=== PATIENT | female | born 1980 | race Caucasian/White ===

== ENCOUNTER 2017-02-26 10:01 | Emergency (ER) | payer MEDICAID ==
[~2017-02-26] VITALS: Ht 160 cm; Wt 70.0 kg
[2017-02-26] MEDS ORDERED: BUPIVACAINE HCL PF 0.5% 10 ML VIAL INFIL ONE (11:00)
[2017-02-26 11:36] VITALS: BP 132/84; PULSE 89; RESP 16; TEMP 98.2; O2SAT 98
[2017-02-26] MEDS ORDERED: IBUP800T23 PO (11:40)
[2017-02-26] MEDS ORDERED: TRAM50TA PO (11:40)
--- NOTE | 2017-02-26 11:41 | PD ---
HPI Chief Complaint: Injury Time Seen by Provider: 10:14 Travel History International Travel<30 days: No Contact w/Intl Traveler<30days: No Traveled to known affect area: No History of Present Illness HPI Patient is a 37-year-old female presenting to the emergency department evaluation of right fourth toe pain after kicking a table this morning prior to arrival. Patient states her pain is a 7 out of 10 and describes as aching and throbbing. She reports it is painful to move her toes or bear weight. She denies any numbness, tingling. Patient denies a significant past medical history. [facility] Past Medical History Medical History: Denies Significant Hx ?: Unknown Social History Alcohol Use: No Tobacco Use: No Substance Use: No Allergies-Medications (Allergen,Severity, Reaction): Coded Allergies: No Known Allergies (Unverified , 02/26/17) Review of Systems Except as stated in HPI: all other systems reviewed are Neg Musculoskeletal: Positive: Limited ROM, Pain Skin: Positive Change in Pigmentation Physical Exam Narrative GENERAL: Well-developed, well-nourished, alert female. Resting comfortably in no acute distress. SKIN: Warm and dry. HEAD: Normocephalic. EYES: No scleral icterus. No injection or drainage. NECK: Supple, trachea midline. No JVD or lymphadenopathy. CARDIOVASCULAR: Regular rate and rhythm without murmurs, gallops, or rubs. RESPIRATORY: Breath sounds equal bilaterally. No accessory muscle use. GASTROINTESTINAL: Abdomen soft, non-tender, nondistended. MUSCULOSKELETAL: No cyanosis, mild edema and ecchymosis noted to the left fourth toe proximally. 2+ dorsalis pedis pulse, brisk less than 3 second capillary refill. BACK: Nontender without obvious deformity. No CVA tenderness. Data Data Orders Orders Foot, Complete ([id number]) (02/26/17 ) Bupivacaine Pf 0.5% Inj (Marcaine Pf 0.5 (02/26/17 11:00) Shoe Post Op (02/26/17 ) Crutches (02/26/17 10:56) MDM Medical Decision Making Medical Screen Exam Complete: Yes Emergency Medical Condition: Yes Differential Diagnosis Contusion versus fracture versus dislocation versus other Narrative Course Patient's 37-year-old female presenting for evaluation of right toe pain after kicking a table. Patient is neurovascularly intact. There is an obvious deformity noted. Imaging ordered and pending. Patient given ice pack for comfort. X-ray shows a displaced fracture of the left fourth toe proximally. A digital block was performed to the left fourth toe with 0.5% bupivacaine. After toe was adequately anesthetized, it was reduced, toe was then boston taped to the third toe. Patient was placed in a postop shoe and given crutches. She was encouraged to leave boston tape intact for one week. She was encouraged to follow-up with her primary doctor. She was encouraged to rest, ice, elevate extremity to help with swelling and pain. She verbalized understanding of instructions. was present for education. Patient is stable for discharge. Diagnosis Primary Impression: Toe fracture, right Qualified Codes: S92.511A - Displaced fracture of proximal phalanx of right lesser toe(s), initial encounter for closed fracture Referrals: Specialist Field Engineer 1 week Primary Care Physician 1 week Patient Instructions: Crutch Instructions (ED), General Instructions, Toe Fracture (ED) Additional Instructions: Follow-up with your primary doctor or a certified substance abuse counselor in one week Rest, ice, elevate extremity Keep boston tape on toes until reevaluated by her doctor Take medications as directed Do not drive or operate machinery while taking narcotic pain medication Return to emergency department for any new or worsening symptoms Med/Other Pt SpecificInfo: Prescription(s) given Scripts Ibuprofen (Ibuprofen) 800 Mg Tab 800 MG PO Q6HR Y for PAIN, #40 TAB 0 Refills Prov: Dian Flowers 02/26/17 Tramadol (Tramadol) 50 Mg Tab 50 MG PO Q6H Y for PAIN, #6 TAB 0 Refills Prov: Dian Flowers 02/26/17 Disposition: 01 DISCHARGE HOME Condition: Stable Dian Flowers Feb 26, 2017 11:40
--- NOTE | 2017-02-26 12:08 | RADRPT ---
EXAM DATE/TIME: 02/26/2017 10:27 [facility] COMPARISON: No previous studies available for comparison. INDICATIONS : Kicked furnature, pain with deformity Rt 4th toe. MEDICAL HISTORY : None. SURGICAL HISTORY : None. ENCOUNTER: Initial ACUITY: 1 day PAIN SCORE: 10/10 LOCATION: Right 4th toe. FINDINGS: There is an oblique moderately angulated fracture involving the distal diaphysis of the fourth toe pr oximal phalanx with lateral angulation of the distal fragment aerated there is also slight plantar an gulation. The foot appears otherwise intact with normal mineralization. No articular abnormalities ar e identified. CONCLUSION: Moderately angulated fourth toe proximal phalangeal fracture. Rayshawn Bajwa MD on February 26, 2017 at 12:05 Board Certified Radiologist. This report was verified electronically.
== END 2017-02-26 11:53 | disposition home or self-care (01) ==
LOC: NEPK 10:01
DX: S92.511A Displaced fracture of proximal phalanx of right lesser toe(s), initial encounter for closed fracture (principal); W22.03XA Walked into furniture, initial encounter
CPT/HCPCS: 28515; 73630; 99283; E0113; L3260

== ENCOUNTER 2017-10-21 09:54 | Inpatient (IN) | payer MEDICAID ==
[2017-10-21] VITALS (7 sets, daily range): BP systolic 97–121; BP diastolic 55–76; PULSE 76–108; RESP 16–20; TEMP 98.5–99.9; O2SAT 92–98
[~2017-10-21] VITALS: Ht 162.6 cm; Wt 53.6 kg
[~2017-10-21 09:54] MED LIST: IBUP1TAB7 PO; TRAM50TA PO
--- NOTE | 2017-10-21 11:22 | PD ---
HPI Chief Complaint: Numbness/Tingling Time Seen by Provider: 11:05 Travel History International Travel<30 days: No Contact w/Intl Traveler<30days: No Traveled to known affect area: No History of Present Illness HPI 37-year-old female came to the emergency room with history of lower back pain radiating down her left leg. The pain is shooting and has been going on for past 1 week. Today she has been dragging her leg and cannot lift her foot. The history is mostly given by her since there is a language barrier. Patient speaks [place] only. No history of trauma. Patient did not fall. Vital signs are stable. She is otherwise a healthy person. This is the first time she is coming for medical help. Patient does not have history of chronic back pain as far as I know. Pain is worse upon movement and change in positions. The shooting pain is all the way down to her toes. PFSH Past Medical History Narrative Medical List of her past medical, surgical, social and family history reviewed from the nursing note Medical other: Yes (chronic back pain greater on left side) Tetanus Vaccination: < 5 Years Influenza Vaccination: No ?: Not LMP: 10/03/17 Tubal Ligation: Yes Past Surgical History Section: Yes (x2 ) Social History Alcohol Use: No Tobacco Use: No Substance Use: No Allergies-Medications (Allergen,Severity, Reaction): Coded Allergies: No Known Allergies (Unverified Adverse Reaction, Unknown, 10/21/17) Comments No known drug allergies. Reported Meds & Prescriptions Reported Meds & Active Scripts Active Narrative Medication List of her home medications reviewed from the nursing note. Review of Systems Except as stated in HPI: all other systems reviewed are Neg Musculoskeletal: Positive: Pain Physical Exam Narrative GENERAL: Awake, alert, moderate to SKIN: Focused skin assessment warm/dry. HEAD: Atraumatic. Normocephalic. EYES: Pupils equal and round. No scleral icterus. No injection or drainage. ENT: No nasal bleeding or discharge. Mucous membranes pink and moist. NECK: Trachea midline. No JVD. CARDIOVASCULAR: Regular rate and rhythm. No murmur appreciated. RESPIRATORY: No accessory muscle use. Clear to auscultation. Breath sounds equal bilaterally. GASTROINTESTINAL: Abdomen soft, non-tender, nondistended. Hepatic and splenic margins not palpable. MUSCULOSKELETAL: No obvious deformities. No clubbing. No cyanosis. No edema. Positive SLR NEUROLOGICAL: Awake and alert. No obvious cranial nerve deficits. Motor grossly within normal limits. Normal speech. Absent ankle reflex on the left side. Positive knee jerk bilaterally and equal PSYCHIATRIC: Appropriate mood and affect; insight and judgment normal. Data Data Last Documented VS Vital Signs Date Time Temp Pulse Resp B/P (MAP) Pulse Ox O2 Delivery O2 Flow Rate FiO2 10/21/17 12:30 78 16 98 Room Air 10/21/17 12:30 103/76 (85) 10/21/17 09:57 99.9 Orders Orders Mri L Spine W/O Contrast (10/21/17 ) Urinalysis - C+S If Indicated (10/21/17 11:34) Ed Urine Pregnancytest Poc (10/21/17 11:34) Morphine Inj (Morphine Inj) (10/21/17 11:45) Ketorolac Inj (Toradol Inj) (10/21/17 11:45) Orphenadrine Inj (Norflex Inj) (10/21/17 11:45) Ondansetron Odt (Zofran Odt) (10/21/17 11:45) Urine Culture (10/21/17 11:58) Nitrofurantoin Monohyd Macrocr (Macrobid (10/21/17 12:30) Dexamethasone Inj (Decadron Inj) (10/21/17 13:00) Admit Order (Ed Use Only) (10/21/17 13:10) Labs Laboratory Tests Test 10/21/17 11:58 Urine Collection Type CLEAN CATCH Urine Color YELLOW Urine Turbidity SL CLOUDY Urine pH 7.0 Urine Specific [place] 1.010 Urine Protein NEG mg/dL Urine Glucose (UA) NEG mg/dL Urine Ketones NEG mg/dL Urine Occult Blood TRACE Urine Nitrite POS Urine Bilirubin NEG Urine Urobilinogen 0.2 MG/DL Urine Leukocyte Esterase NEG Urine RBC 0-3 /hpf Urine WBC 3-5 /hpf Urine Squamous Epithelial Cells 0-5 /hpf Urine Bacteria MANY /hpf Microscopic Urinalysis Comment CULTURE INDICATED Urine Collection Time 11:58 [facility] Medical Decision Making Medical Screen Exam Complete: Yes Emergency Medical Condition: Yes Medical Record Reviewed: Yes Interpretation(s) Twelve-lead EKG was reviewed by me. Normal sinus rhythm, normal axis, sinus arrhythmia, nonspecific ST-T wave changes. Heart rate of 61 bpm Differential Diagnosis Lumbar radiculopathy, sciatica, foot drop Narrative Course 12:15 PM patient has been given pain medication and muscle relaxation. Awaiting for the MRI of the lumbar spine to be done and resulted. I am concerned about the foot drop and she might require surgical decompression. The UA is positive for UTI. I will go ahead and treat her as well. 12:52 PM MRI is suggestive of a large disc protrusion at L4-L5 level which is causing significant compression on the left nerve root. I will order some Decadron IV for the patient. I put a call out from our the neurosurgeon to discuss this case with him. The patient should preferably be admitted once again due to the foot drop. 1:02 PM case was discussed with Dr. Shannon and he wants the patient to be transferred to the main hospital. Awaiting for the hospitalist callback. Procedures EKG Prior to Arrival: No Physician Communication Physician Communication Dr. Shannon Diagnosis Primary Impression: Lumbar radiculopathy, acute Additional Impression: Foot drop, left Admitting Information Admitting Physician Requests: Admit Scripts Walker with Front Wheels (Walker with Front Wheels) 1 Mis Mis EA .XX DIRECTED, #1 0 Refills Prov: Jamal Sims 10/23/17 Fluconazole (Diflucan) 150 Mg Tab 150 MG PO ONCE Y for yeast infection, #1 TAB 0 Refills Prov: Jonathon Corona MD 10/23/17 Nitrofurantoin Monohydrate Macrocrystals (Nitrofurantoin Monohydrate Macrocrystals) 100 Mg Cap 100 MG PO BID for Infection for 5 Days, #10 CAP 0 Refills Prov: Jonathon Corona MD 10/23/17 Hydrocodone/Acetaminophen (Hydrocodone-Acetamin 10-325 mg) 10 Mg-325 Mg Tablet 1 TAB PO Q6HR Y for PAIN SCALE 1 TO 5 for 7 Days, #21 TAB Prov: Jonathon Corona MD 10/23/17 Jossue Zapien MD October 21, 2017 11:22
[2017-10-21] MEDS ORDERED: KETOROLAC TROMETHAMINE 60 MG/2 ML (IM) VIAL IM ONE (11:45)
[2017-10-21] MEDS ORDERED: MORPHINE SULFATE 8 MG/ML INJ IM ONE (11:45)
[2017-10-21] MEDS ORDERED: ONDANSETRON ODT 4 MG TAB PO ONE (11:45)
[2017-10-21] MEDS ORDERED: ORPHENADRINE INJ 60 MG/2 ML AMP IM ONE (11:45)
[2017-10-21 12:06] LABS: BILIRUBIN, URINE NEG (NEG); BLOOD, URINE TRACE (NEG); GLUCOSE,URINE NEG (NEG); KETONE, URINE NEG (NEG); NITRITE,URINE POS (NEG); URINE COLOR YELLOW (YELLW/STRAW); URINE LEUKOCYTE ESTERASE NEG (NEG)
[2017-10-21 12:12] LABS: BACTERIA, URINE MANY /hpf; RBC, URINE 0-3 /hpf (0-3); SQUAMOUS EPITHELIAL CELL URINE 0-5 /hpf (0-5)
[2017-10-21] MEDS ORDERED: NITROFURANTOIN MONOHYD MACROCR 100 MG CAP PO ONE (12:30)
--- NOTE | 2017-10-21 12:50 | RADRPT ---
EXAM DATE/TIME: 10/21/2017 12:39 [facility] COMPARISON: No previous studies available for comparison. INDICATIONS : Radiculopathy. Lower back pain radiating down left leg with numbness, tingling and left foot droop . MEDICAL HISTORY : Chronic back pain. SURGICAL HISTORY : Tubal ligation. section. ENCOUNTER: Initial ACUITY: 1 day PAIN SCORE: 8/10 LOCATION: Lower back. TECHNIQUE: Multiplanar multisequence MRI of the lumbar spine was performed without contrast. FINDINGS: The most caudal appearing lumbar vertebra is numbered as L5. VERTEBRAE: Homogeneous signal. Normal alignment. DISCS: There is desiccation and disc space narrowing at L4-5 and L5-S1 levels. There is a large anterior epi dural defect on the sagittal images at the L4-5 level. CONUS: Normal level and configuration. T12-L1: The thecal sac has a normal diameter. No evidence of disc bulge or protrusion. The neural foramina are patent bilaterally. L1-L2: The thecal sac has a normal diameter. No evidence of disc bulge or protrusion. The neural foramina are patent bilaterally. L2-L3: The thecal sac has a normal diameter. No evidence of disc bulge or protrusion. The neural foramina are patent bilaterally. L3-L4: The thecal sac has a normal diameter. No evidence of disc bulge or protrusion. The neural foramina are patent bilaterally. L4-L5: There is a large posterior central and left parasagittal protrusion measuring up to approximately 1.6 cm across the base and up to 9 mm in greatest AP diameter with mass effect on the thecal sac and belkis tral canal stenosis. The neural foramina are patent. There is mass effect on the origin of the left L 5 nerve root. L5-S1: No evidence of disc bulge or protrusion. The neural foramina are patent. CONCLUSION: Large posterior central and left paracentral protrusion at the L4-5 level with mass effect on the the rg sac and origin of the left L5 nerve root. Alexey Stubbs MD on October 21, 2017 at 12:44 Board Certified Radiologist. This report was verified electronically.
[2017-10-21] MEDS ORDERED: DEXAMETHASONE SOD PHOS 20 MG/5 ML VIAL IV PUSH ONE (13:00)
--- NOTE | 2017-10-21 13:24 | PD.CONS ---
HPI Consult Requested By Primary Care Physician No Primary Care Physician History of Present Illness This is a pleasant 37-year-old female came to the emergency room with history of lower back pain radiating down her left leg. Her pain is shooting and has been worsening. She has been dragging her leg and cannot lift her foot. She has been numb and unable to move her left foot for over 10 days. she reports a complete foot drop for over 10 days. She speaks [place] only. No history of trauma. Patient did not fall. Vital signs are stable. She is otherwise healthy. She denies incontinence of stool or urinary retention. This the first time she is coming for medical help. Her pain is worse upon movement and change in positions. The shooting pain is all the way down to her toes. MRI of the lumbar spine showed a large disk extrusion at L4-5, Neurosurgical consultation was requested Review of Systems Constitutional: DENIES: Diaphoretic episodes, Fatigue, Fever, Weight gain, Weight loss, Chills, Dizziness, Change in appetite, Night Sweats Endocrine: DENIES: Abnorml menstrual pattern, Heat/cold intolerance, Polydipsia , Polyuria, Polyphagia Eyes: DENIES: Blurred vision, Diplopia, Eye inflammation, Eye pain, Vision loss , Photosensitivity, Double Vision Ears, nose, mouth, throat: DENIES: Tinnitus, Hearing loss, Vertigo, Nasal discharge, Oral lesions, Throat pain, Hoarseness, Ear Pain, Running Nose, Epistaxis, Sinus Pain, Toothache, Odynophagia Respiratory: DENIES: Apneas, Cough, Snoring, Wheezing, Hemoptysis, Sputum production, Shortness of breath Cardiovascular: DENIES: Chest pain, Palpitations, Syncope, Dyspnea on Exertion , PND, Lower Extremity Edema, Orthopnea, Claudication Genitourinary: DENIES: Abnormal vaginal bleeding, Dysmenorrhea, Dyspareunia, Sexual dysfunction, Urinary frequency, Urinary incontinence, Urgency, Hematuria , Dysuria, Nocturia, Vaginal discharge Musculoskeletal: COMPLAINS OF: Joint pain, Muscle aches, Back pain, DENIES: Stiffness, Joint Swelling, Neck pain Integumentary: DENIES: Abnormal pigmentation, Pruritus, Rash, Nail changes, Breast masses, Breast skin changes, Nipple discharge Hematologic/lymphatic: DENIES: Bruising, Lymphadenopathy Immunologic/allergic: DENIES: Eczema, Urticaria Neurologic: COMPLAINS OF: Abnormal gait, Localized weakness, Paresthesias, DENIES: Headache, Seizures, Speech Problems, Tremor, Poor Balance Psychiatric: DENIES: Anxiety, Confusion, Mood changes, Depression, Hallucinations, Agitation, Suicidal Ideation, Homicidal Ideation, Delusions Past Family Social History Allergies: Coded Allergies: No Known Allergies (Unverified Adverse Reaction, Unknown, 10/21/17) Past Surgical History Tubal Ligation: Yes Section: Yes (x2 ) Reported Medications No Active Prescriptions or Reported Medications Active Ordered Medications Current Medications Morphine Sulfate (Morphine Inj) 6 mg ONCE ONCE IM Last administered on 12:15; Start 10/21/17 at 11:45; Stop 10/21/17 at 11:46; Status DC Ketorolac Tromethamine (Toradol Inj) 30 mg ONCE ONCE IM Last administered on at 12:14; Start 10/21/17 at 11:45; Stop 10/21/17 at 11:46; Status DC Orphenadrine Citrate (Norflex Inj) 60 mg ONCE ONCE IM Last administered on 10/21 12:13; Start 10/21/17 at 11:45; Stop 10/21/17 at 11:46; Status DC Ondansetron HCl (Zofran Odt) 4 mg ONCE ONCE PO Last administered on 10/21/17at 12:14; Start 10/21/17 at 11:45; Stop 10/21/17 at 11:46; Status DC Nitrofurantoin Macrocrystals (Macrobid) 100 mg ONCE ONCE PO Last administered on 10/21/17 13:21; Start 10/21/17 at 12:30; Stop 10/21/17 at 12:31; Status DC Dexamethasone Sodium Phosphate (Decadron Inj) 10 mg ONCE ONCE IV PUSH Last administered on 10/21/17 13:22; Start 10/21/17 at 13:00; Stop 10/21/17 at 13:01; Status DC Sodium Chloride (NS Flush) 2 ml UNSCH PRN IV FLUSH FLUSH AFTER USING IV ACCESS Last administered on 5/3/18at 14:40; Start 10/21/17 at 14:00 Sodium Chloride (NS Flush) 2 ml BID IV FLUSH Last administered on 10/22/17at 08: 22; Start 10/21/17 at 21:00 Acetaminophen (Tylenol) 650 mg Q4H PRN PO TEMP > 100.4; Start 10/21/17 at 14:00 Ondansetron HCl (Zofran Inj) 4 mg Q6H PRN IVP NAUSEA OR VOMITING; Start at 14:00 Naloxone HCl (Narcan Inj) 0.4 mg UNSCH PRN IV PUSH SEE LABEL COMMENTS; Start at 14:00 Senna/Docusate Sodium (Desirae-Colace) 1 tab BID PO ; Start 10/21/17 at 21:00 Magnesium Hydroxide (Milk Of Magnesia Liq) 30 ml Q12H PRN PO Mild constipation ; Start 10/21/17 at 14:00 Sennosides (Senokot) 17.2 mg Q12H PRN PO Moderate constipation; Start 10/21/17 at 14:00 Bisacodyl (Dulcolax Supp) 10 mg DAILY PRN RECTAL SEVERE CONSITIPATION; Start at 14:00 Morphine Sulfate (Morphine Inj) 2 mg Q4H PRN IV PUSH pain 1-10; Start 10/21/17 at 14:15 Ceftriaxone Sodium 1000 mg/ Sodium Chloride 100 ml @ 200 mls/hr Q24H IV Last administered on 10/21/17at 14:39; Start 10/21/17 at 15:00 Cefazolin Sodium/ Dextrose 50 ml @ 150 mls/hr ONCE ONCE IV Last administered on 10/22/17at 05:25; Start 10/22/17 at 06:00; Stop 10/22/17 at 06:19; Status DC Chlorhexidine Gluconate (Hibiclens 4% Top Soln) 1 applic HS TOP Last administered on 10/21/17at 21:00; Start 10/21/17 at 21:00; Stop 10/23/17 at 21:01 Thrombin (Thrombin Top Soln) 10,000 units STK-MED ONCE .ROUTE ; Start 10/22/17 at 06:59; Stop 10/22/17 at 07:00; Status DC Gelatin (Gelfoam 100 Top) 1 foam STK-MED ONCE .ROUTE ; Start 10/22/17 at 06:59; Stop 10/22/17 at 07:00; Status DC Gentamicin Sulfate (Gentamicin Inj) 240 mg STK-MED ONCE .ROUTE ; Start 10/22/17 at 06:59; Stop 10/22/17 at 07:00; Status DC Bupivacaine HCl (Marcaine Pf 0.5% Inj) 30 ml STK-MED ONCE .ROUTE ; Start at 07:03; Stop 10/22/17 at 07:04; Status DC Methylprednisolone Acetate (Depo-Medrol Inj) 40 mg STK-MED ONCE .ROUTE ; Start 10/22/17 at 07:03; Stop 10/22/17 at 07:04; Status DC Artificial Tears (Lacrilube Opht Oint) 3.5 applic STK-MED ONCE .ROUTE ; Start at 07:06; Stop 10/22/17 at 07:07; Status DC Acetaminophen 100 ml @ As Directed STK-MED ONCE IV ; Start 10/22/17 at 07:06; Stop 10/22/17 at 07:07; Status DC Family History Her family history was reviewed and noncontributory to her dish herniation Social History Alcohol Use: No Tobacco Use: No Substance Use: No Physical Exam Vital Signs Vital Signs Date Time Temp Pulse Resp B/P (MAP) Pulse Ox O2 Delivery O2 Flow Rate FiO2 10/21/17 10:21 103 16 99 Room Air 10/21/17 09:57 99.9 108 16 114/64 (81) 98 Physical Exam The patient is alert, awake and oriented to time, place and person. Speech is fluent. Cranial nerve examination: pupils to be equal, round and reactive to light. Extra-ocular movements are intact. Facial motor and sensory function are normal and symmetrical. Gross hearing appears intact. Sternocleidomastoid and trapezius muscles are symmetrical. Other cranial nerves are intact. Neck is soft and supple with a good range of motion without pain. Muscle strength is normal in all muscle groups of both upper. In her left lower extremity there is give away due to pain in her ilipsoas, abductors and quadriceps, strenght in tibialis anterior and EHL 0/5. 5/5 all groups of right lower extremity Sensory examination is intact to light touch and pin prick in both upper extremities and absent in left L5 dermatome. Intact in her right lower extremity Deep tendon reflexes are symmetrical in both upper and lower extremities. There is a bilateral plantar flexion response. Cerebellar examination is unremarkable, without deficits. Lungs clear Heart regular rthythm and rate Skin. warm and dry Laboratory Laboratory Tests Test 10/21/17 11:58 Urine Collection Type CLEAN CATCH Urine Color YELLOW Urine Turbidity SL CLOUDY Urine pH 7.0 Urine Specific [place] 1.010 Urine Protein NEG Urine Glucose (UA) NEG Urine Ketones NEG Urine Occult Blood TRACE Urine Nitrite POS Urine Bilirubin NEG Urine Urobilinogen 0.2 Urine Leukocyte Esterase NEG Urine RBC 0-3 Urine WBC 3-5 Urine Squamous Epithelial Cells 0-5 Urine Bacteria MANY Microscopic Urinalysis Comment CULTURE INDICATED Urine Collection Time 11:58 Date/Time Source Procedure Growth Status 10/21/17 11:58 Urine Clean Catch Urine Culture Pending Received Attending Statement Last 48 hours Impressions Lumbar Spine MRI 10/21/17 0000 Signed Impressions: Service Date/Time: October 12:39 - CONCLUSION: Large posterior central and left paracentral protrusion at the L4-5 level with mass effect on the thecal sac and origin of the left L5 nerve root. Alexey Stubbs MD Continue neuro checks in a serial fashion. I recommend a surgical decompression with L4-5 microdiscectomy. We have discussed the details including the [id number] details of the surgical procedure, its indications, alternatives, risks, and potential complications. Risks and potential complications include, but are not limited to, infection, blood loss, CSF leak, partial or complete loss of sight in one or both eyes, paresis, paralysis, permanent pain or difficulty swallowing, loss of bowel or bladder function, complications from anesthesia, blood clot, stroke, myocardial infarction, or even . Rustam Shannon MD October 21, 2017 13:24
[2017-10-21] MEDS ORDERED: SENNOSIDES 8.6 MG TAB PO PRN (14:00)
[2017-10-21] MEDS ORDERED: MAGNESIUM HYDROXIDE SUSP 30 ML CUP PO PRN (14:00)
[2017-10-21] MEDS ORDERED: BISACODYL 10 MG SUPP RECTAL PRN (14:00)
[2017-10-21] MEDS ORDERED: SODIUM CHLORIDE 0.9% FLUSH 10 ML FLUSH IV FLUSH PRN (14:00)
[2017-10-21] MEDS ORDERED: ONDANSETRON HCL 4 MG/2 ML VIAL IVP PRN (14:00)
[2017-10-21] MEDS ORDERED: ACETAMINOPHEN 325 MG TAB PO PRN (14:00)
[2017-10-21] MEDS ORDERED: NALOXONE HCL 0.4 MG/ML AMP IV PUSH PRN (14:00)
[2017-10-21] MEDS ORDERED: MORPHINE SULFATE 4 MG/ML INJ IV PUSH PRN (14:15)
[2017-10-21] MEDS: SODIUM CHLORIDE 0.9% FLUSH 10 ML FLUSH IV FLUSH SCH (14:39)
[2017-10-21] MEDS ORDERED: cefTRIAXone INJ 1,000 MG in SODIUM CHLORIDE 0.9% INJ 100 ML IV SCH (15:00)
--- NOTE | 2017-10-21 17:49 | RADRPT ---
EXAM DATE/TIME: 10/21/2017 17:42 [facility] COMPARISON: MRI LUMBAR SPINE W/O CONTRAST, October 21, 2017, 12:39. INDICATIONS : Evaluate for pneumonia, pneuothorax or communicable disease. Pre op for lumbar surgery. MEDICAL HISTORY : None. SURGICAL HISTORY : None. ENCOUNTER: Initial ACUITY: 1 day PAIN SCORE: 0/10 LOCATION: Bilateral chest FINDINGS: PA and lateral views of the chest demonstrate the lungs to be symmetrically aerated without evidence of mass, infiltrate or effusion. The cardiomediastinal contours are unremarkable. Osseous structure s are intact. CONCLUSION: 1. No acute cardiopulmonary disease. Emanuel Lawson MD on October 21, 2017 at 17:47 Board Certified Radiologist. This report was verified electronically.
[2017-10-21] MEDS: CHLORHEXIDINE GLUCONATE 4% SOLN 120 ML BTL TOP SCH (21:00)
[2017-10-21] MEDS: DOCUSATE SODIUM 50 MG/SENNA 8.6 MG TAB PO SCH (21:00)
[2017-10-21 22:11] LABS: AUTOMATED NEUTROPHIL # 7.1 TH/MM3 (1.8-7.7); BASOPHIL % 0.1 % (0.0-2.0); HEMATOCRIT 41.2 % (35.0-46.0); HEMOGLOBIN 13.6 GM/DL (11.6-15.3); LYMPHOCYTE # 0.5 TH/MM3 (1.0-4.8); MEAN CELL VOLUME 81.2 FL (80.0-100.0); MEAN CORPUSCULAR HEMOGLOBIN 26.8 PG (27.0-34.0); MEAN CORPUSCULAR HGB CONC 33.1 % (32.0-36.0); MEAN PLATELET VOLUME 10.3 FL (7.0-11.0); MONO % 0.8 % (0.0-8.0); MONOCYTE # 0.1 TH/MM3 (0-0.9); NEUT % 93.1 % (16.0-70.0); PLATELET COUNT 197 TH/MM3 (150-450); RED BLOOD COUNT 5.07 MIL/MM3 (4.00-5.30); RED CELL DISTRIBUTION WIDTH 13.2 % (11.6-17.2); WHITE BLOOD COUNT 7.7 TH/MM3 (4.0-11.0)
[2017-10-21 22:18] LABS: PROTHROMBIN TIME - PATIENT 10.3 SEC (9.8-11.6)
[2017-10-21 22:29] LABS: ALBUMIN 4.2 GM/DL (3.4-5.0); ALT (GPT) 18 U/L (10-53); AST (GOT) 12 U/L (15-37); BICARBONATE 23.6 MEQ/L (21.0-32.0); BLOOD UREA NITROGEN 14 MG/DL (7-18); CALCIUM 9.2 MG/DL (8.5-10.1); CHLORIDE 105 MEQ/L (98-107); CREATININE 0.84 MG/DL (0.50-1.00); GLOMERULAR FILTRATION RATE 77 ML/MIN (>89); GLUCOSE,RANDOM 110 MG/DL (74-106); SODIUM (NA) 139 MEQ/L (136-145)
[2017-10-21 22:30] LABS: ALKALINE PHOSPHATASE 66 U/L (45-117); TOTAL BILIRUBIN ADULT 0.4 MG/DL (0.2-1.0); TOTAL PROTEIN 8.5 GM/DL (6.4-8.2)
[2017-10-22] VITALS: BP 99/55; PULSE 80; RESP 16; TEMP 97.6; O2SAT 96
[2017-10-22 03:54] VITALS: BP 105/59; PULSE 72; RESP 17; TEMP 97.7; O2SAT 95
[2017-10-22] MEDS ORDERED: ceFAZolin 2 GM PREMIX 50 ML IV ONE ×2 (06:00→10:26)
[2017-10-22] MEDS ORDERED: THROMBIN (TOPICAL) 5,000 UNIT VIAL ONE (06:59)
[2017-10-22] MEDS ORDERED: GENTAMICIN SULFATE 80 MG/2 ML VIAL ONE (06:59)
[2017-10-22] MEDS ORDERED: GELFOAM SIZE 100 ONE (06:59)
[2017-10-22] MEDS ORDERED: methylPREDNISolone ACETATE 40 MG/ML VIAL ONE (07:03)
[2017-10-22] MEDS ORDERED: BUPIVACAINE HCL PF 0.5% 30 ML VIAL ONE (07:03)
[2017-10-22] MEDS ORDERED: ARTIFICIAL TEARS OPTH OINT 3.5 APPLIC/3.5 GM TUBO ONE (07:06)
[2017-10-22] MEDS ORDERED: ACETAMINOPHEN 1000 MG/100 ML 100 ML IV ONE (07:06)
[2017-10-22 07:56] LABS: BASOPHIL % 0.1 % (0.0-2.0); HEMATOCRIT 40.9 % (35.0-46.0); HEMOGLOBIN 13.5 GM/DL (11.6-15.3); LYMPH % 11.2 % (9.0-44.0); LYMPHOCYTE # 1.4 TH/MM3 (1.0-4.8); MEAN CELL VOLUME 81.4 FL (80.0-100.0); MEAN CORPUSCULAR HEMOGLOBIN 26.9 PG (27.0-34.0); MEAN CORPUSCULAR HGB CONC 33.1 % (32.0-36.0); MEAN PLATELET VOLUME 10.2 FL (7.0-11.0); MONO % 5.6 % (0.0-8.0); MONOCYTE # 0.7 TH/MM3 (0-0.9); NEUT % 83.1 % (16.0-70.0); PLATELET COUNT 220 TH/MM3 (150-450); RED BLOOD COUNT 5.02 MIL/MM3 (4.00-5.30); RED CELL DISTRIBUTION WIDTH 13.8 % (11.6-17.2); WHITE BLOOD COUNT 12.1 TH/MM3 (4.0-11.0)
[2017-10-22] MEDS: DOCUSATE SODIUM 50 MG/SENNA 8.6 MG TAB PO SCH (08:22)
[2017-10-22] MEDS: SODIUM CHLORIDE 0.9% FLUSH 10 ML FLUSH IV FLUSH SCH ×2 (08:22→21:00)
[2017-10-22 08:31] LABS: BICARBONATE 24.3 MEQ/L (21.0-32.0); CALCIUM 9.1 MG/DL (8.5-10.1); CREATININE 0.93 MG/DL (0.50-1.00)
[2017-10-22] MEDS ORDERED: ACETAMINOPHEN 325 MG TAB PO PRN (09:45)
[2017-10-22] MEDS ORDERED: MORPHINE SULFATE 4 MG/ML INJ IV PUSH PRN ×2 (09:45)
[2017-10-22] MEDS ORDERED: ACETAMINOPHEN/HYDROcodone 325 MG/10 MG TAB PO PRN (09:45)
--- NOTE | 2017-10-22 11:08 | PD.OP ---
Operative Report Date of Surgery: October 22, 2017 Preoperative Diagnosis: L4-5 disk herniatiohn Postoperative Diagnosis: L4-5 disk herniatiohn Procedure: Left L4-5 hemilaminectomy and microdiscectomy Anesthesia: general Surgeon: Rustam Shannon Roll Weigher(s): Nancy Lomeli Operation and Findings: INDICATIONS FOR THE SURGICAL PROCEDURE Ms Wilburn is a 37 year-old female who presented with intractable mechanical back pain and clinical evidence of lower extremity radiculopathy and a foot drop for more than 10 days. She was found to have a very large disk herniation causing significant stenosis with significant mass effect on the exiting L5 nerve root neural structures which correlated with the clinical symptoms. The patient has failed maximum nonsurgical management including multiple modalities of conservative treatment as well as pain management interventions by an interventional pain specialist. A surgical decompression were indicated as a last resort. The [id number] details of the procedure, indications, alternatives, risks and potential complications were fully discussed with the patient. The patient fully understood. All the questions were answered. No guarantees were given. The patient voiced requesting the procedure and signed informed consents. The patient was offered the alternative of delaying the procedure and continuing with nonsurgical management. DETAILS OF THE SURGICAL PROCEDURE After the induction of general anesthesia, endotracheal intubation was performed. A Loya catheter, bilateral NKECHI hose and sequential compression devices were placed and kept throughout the procedure. The patient was positioned prone on a Horacio table over a Judah frame. All pressure points were carefully padded with eggcrate mattress. The eyes were tapped shut after ointment was applied by the anesthesiologist to prevent corneal abrasion. A Edna hugger was placed over the exposed lower body to maintain control of the core body temperature. The lower lumbar region was prepped and draped in the usual sterile fashion. A spinal needle was placed for localization and an x- ray performed with a C-arm. A skin incision was made in the midline over the spinous processes L4-5 with a # 10 blade. Small subcutaneous bleeders were controlled with a bipolar and the dissection was carried out through the lumbar fascia exposing the spinous processes. A subperiosteal dissection was performed with a Reed elevator and a Bovie over the left L4-5 spinous process lamina and facets. A microdiscectomy self-retaining retractor was placed on the incision and an x-ray was obtained with an instrument placed underneath the lamina. At this point in the procedure the operating microscope was draped in the usual sterile fashion and brought to the field. The rest of the surgical procedure was performed using microsurgical dissection technique with exception of the closure. Once the level was confirmed, a decompressive laminectomy was performed at L4-5 on the left side using the TPS drill with an 4mm drill bit. A medial facetectomy was performed and the superior free border of the ligamentum flavum was dissected with a ligament dissector and removed with a thin footplate 2 mm Kerrison The medial facetectomy allowed me to expose the left L5 nerve root, which was identified and followed towards its exit in the foramen. Epidural veins located laterally to the dural sac were coagulated with a bipolar and incised with microscissors. Gentle medial retraction of the dural sac allowed inspection of the disc space. The patient had a very large disk extrusion/ herniation, causing severe mass effect over the exiting nerve root. The annulus fibrosus of the disc was coagulated with the bipolar and incised with an 11 blade. The extruded disc was carefully dissected from the surrounding tissue and removed with pituitary forceps. Then, a microdiscectomy was carried out in the standard fashion using straight and up-biting pituitary forceps. An excellent decompression of the dural sac and nerve root was achieved. The exit of the nerve root was inspected for residual disc fragments and hemostasis was secured with the bipolar. The incision was irrigated with a large amount of saline solution. A Valsalva maneuver failed to show any cerebrospinal fluid leak or bleeding. The decompression was assessed again and found to be satisfactory. The incision was then closed in layers. The fascia was closed with 0 Vicryl sutures in an interrupted fashion. The superficial fascia was closed with 0 Vicryl sutures. The fascia was infiltrated with 0.5% Marcaine with epinephrine 1:100,000 dilution. The subcutaneous tissue was irrigated then closed with 0 Vicryl and 3 -0 Vicryl. The skin was closed with 4-0 running subcuticular Vicryl. Dermabond was applied to the skin. A sterile dressing was applied. At the end of the procedure, the sponge, needle and instrument counts were all correct. Estimated blood loss was less than 50 cc. No blood transfusion was given. No intraoperative complications occurred. The patient received prophylactic antibiotics. The patient was then extubated and transferred to the recovery room in stable condition. Rustam Shannon MD October 22, 2017 11:08
[2017-10-22] MEDS ORDERED: DO NOT ADM ANY ANTICOAGULANT DRUGS PRN (11:18)
[2017-10-22] MEDS ORDERED: MIDAZOLAM HCL 2 MG/2 ML VIAL ONE (11:24)
[2017-10-22] MEDS ORDERED: MORPHINE SULFATE 4 MG/ML INJ ONE (11:25)
[2017-10-22] MEDS: NS + KCL 20 MEQ INJ 1,000 ML IV SCH ×2 (11:30→23:16)
--- NOTE | 2017-10-22 11:55 | RADRPT ---
EXAM DATE/TIME: 10/22/2017 10:04 [place] COMPARISON: No previous studies available for comparison. INDICATIONS : Level Localization L4,L5. MEDICAL HISTORY : Chronic back pain. SURGICAL HISTORY : Tubal ligation. section. ENCOUNTER: Initial ACUITY: 1 day PAIN SCORE: Non-responsive. LOCATION: Lumbar spine. FINDINGS: Metallic probe directed at L4-L5 CONCLUSION: Metallic probe L4-L5 Earl Palacios MD FACR on October 22, 2017 at 11:52 Board Certified Radiologist. This report was verified electronically.
[2017-10-22] MEDS ORDERED: ceFAZolin 2 GM PREMIX 50 ML IV SCH (12:00)
[2017-10-22] MEDS ORDERED: *ONDANSETRON 4 MG VIAL PERIprocedural Use ONLY ONE (12:32)
--- NOTE | 2017-10-22 14:37 | HHI.HP ---
[facility] Service [facility] Primary Care Physician No Primary Care Physician Admission Diagnosis Lumbar radiculopathy, foot drop Diagnoses: (1) Foot drop, left (2) Lumbar radiculopathy, acute Chief Complaint: Back pain, leg weakness Travel History International Travel<30 Days: No Contact w/Intl Traveler <30 Da: No Traveled to Known Affected Are: No History of Present Illness I attempted to see the patient this morning at ~0900, but she was off the floor for surgery. She is seen following surgery. [employer] service utilized. Patient is a 37-year-old Malay-speaking female who presented to the emergency department yesterday with complaint of lower back pain that radiated down her left leg. This has been going on for about a week. Starting yesterday she developed significant weakness in her left leg and was unable to lift her left foot. She denies any injuries to her back. Denies any recent falls. No urinary difficulties. Review of Systems Constitutional: DENIES: Fever, Chills, Night Sweats Eyes: DENIES: Blurred vision, Vision loss Ears, nose, mouth, throat: DENIES: Hearing loss Respiratory: DENIES: Cough, Wheezing, Sputum production, Shortness of breath Cardiovascular: DENIES: Chest pain, Palpitations, Dyspnea on Exertion, Lower Extremity Edema Gastrointestinal: DENIES: Abdominal pain, Constipation, Diarrhea, Nausea, Vomiting Genitourinary: DENIES: Urinary frequency, Urinary incontinence, Urgency, Hematuria, Dysuria, Nocturia Musculoskeletal: COMPLAINS OF: Back pain, DENIES: Joint pain, Muscle aches Integumentary: DENIES: Pruritus, Rash Hematologic/lymphatic: DENIES: Bruising Neurologic: COMPLAINS OF: Localized weakness, DENIES: Headache Past Family Social History Past Medical History Denies Past Surgical History section 2 Right wrist surgery Reported Medications None Allergies: Coded Allergies: No Known Allergies (Unverified Adverse Reaction, Unknown, 10/21/17) Family History Father has history of hypertension, gout Social History Denies alcohol, tobacco, or illicit drug use. Physical Exam Vital Signs Vital Signs Date Time Temp Pulse Resp B/P (MAP) Pulse Ox O2 Delivery O2 Flow Rate FiO2 10/22/17 13:30 97.6 72 16 95/50 (65) 98 Room Air 10/22/17 12:30 67 12 97/53 (68) 98 Room Air 10/22/17 12:00 65 14 114/56 (75) 99 Room Air 10/22/17 11:45 62 14 110/55 (73) 99 Room Air 10/22/17 11:30 62 14 111/65 (80) 100 10/22/17 11:18 97.6 68 14 111/63 (79) 100 Nasal Cannula 2 10/22/17 08:00 Room Air 10/22/17 04:00 Room Air 10/22/17 03:54 97.7 72 17 105/59 (74) 95 10/22/17 00:00 97.6 80 16 99/55 (70) 96 10/22/17 00:00 Room Air 10/21/17 22:00 Room Air 10/21/17 20:00 98.5 85 16 97/55 (69) 96 10/21/17 18:29 Room Air 10/21/17 17:01 98.7 86 20 105/59 (74) 92 10/21/17 15:59 81 16 121/67 (85) 10/21/17 14:52 77 16 100/57 (71) 98 Room Air Physical Exam Examined in the presence of the nurse. GENERAL: Well-nourished, well-developed female in no acute distress. HEENT: Normocephalic, atraumatic. Pupils equal, round and reactive. Extraocular movements intact. No scleral icterus. No injection or drainage. Oropharynx is clear. Mucous membranes are moist. CARDIOVASCULAR: Regular rate and rhythm without murmurs, gallops, or rubs. RESPIRATORY: Clear to auscultation. No wheezes, rales, or rhonchi. Breathing is non-labored. GASTROINTESTINAL: Abdomen soft, non-tender, nondistended. EXTREMITIES: No lower extremity edema. No calf tenderness. PSYCH: Alert and oriented x 3. NEURO: Cranial nerves II through XII are grossly intact. Patient has weakness of the left foot on dorsiflexion. Laboratory Laboratory Tests Test 10/21/17 21:32 10/22/17 07:00 White Blood Count 7.7 12.1 Red Blood Count 5.07 5.02 Hemoglobin 13.6 13.5 Hematocrit 41.2 40.9 Mean Corpuscular Volume 81.2 81.4 Mean Corpuscular Hemoglobin 26.8 26.9 Mean Corpuscular Hemoglobin Concent 33.1 33.1 Red Cell Distribution Width 13.2 13.8 Platelet Count 197 220 Mean Platelet Volume 10.3 10.2 Neutrophils (%) (Auto) 93.1 83.1 Lymphocytes (%) (Auto) 6.0 11.2 Monocytes (%) (Auto) 0.8 5.6 Eosinophils (%) (Auto) 0.0 0.0 Basophils (%) (Auto) 0.1 0.1 Neutrophils # (Auto) 7.1 10.0 Lymphocytes # (Auto) 0.5 1.4 Monocytes # (Auto) 0.1 0.7 Eosinophils # (Auto) 0.0 0.0 Basophils # (Auto) 0.0 0.0 CBC Comment DIFF FINAL DIFF FINAL Differential Comment Prothrombin Time 10.3 Prothromb Time International Ratio 1.0 Activated Partial Thromboplast Time 24.5 Blood Urea Nitrogen 14 15 Creatinine 0.84 0.93 Random Glucose 110 89 Total Protein 8.5 Albumin 4.2 Calcium Level 9.2 9.1 Alkaline Phosphatase 66 Aspartate Amino Transf (AST/SGOT) 12 Alanine Aminotransferase (ALT/SGPT) 18 Total Bilirubin 0.4 Sodium Level 139 140 Potassium Level 3.8 3.3 Chloride Level 105 104 Carbon Dioxide Level 23.6 24.3 Anion Gap 10 12 Estimat Glomerular Filtration Rate 77 68 Date/Time Source Procedure Growth Status 10/21/17 11:58 Urine Clean Catch Urine Culture - Preliminary Gram Negative Iggy Resulted Result Diagram: 10/22/17 0700 10/22/17 0700 Imaging Last Impressions Lumbar Spine X-Ray 10/22/17 0000 Signed Impressions: Service Date/Time: Sunday, October 22, 2017 10:04 - CONCLUSION: Metallic probe L4- L5 Earl Palacios MD FACR Lumbar Spine MRI 10/21/17 0000 Signed Impressions: Service Date/Time: October 12:39 - CONCLUSION: Large posterior central and left paracentral protrusion at the L4-5 level with mass effect on the thecal sac and origin of the left L5 nerve root. Alexey Stubbs MD Chest X-Ray 10/21/17 0000 Signed Impressions: Service Date/Time: October 17:42 - CONCLUSION: 1. No acute cardiopulmonary disease. MD Ryan Toledo VTE Risk Assessment Ryan VTE Risk Assessment: Mod/High Risk (score >= 2) Patrickrini Risk Assessment Model Point Value = 1 Point Value = 2 Point Value = 3 Point Value = 5 Age 41-60 Minor surgery BMI > 25 kg/m2 Swollen legs Varicose veins or History of unexplained or recurrent spontaneous Oral contraceptives or hormone replacement Sepsis (< 1 month) Serious lung disease, including pneumonia (< 1 month) Abnormal pulmonary function Acute myocardial infarction Congestive heart failure (< 1 month) History of inflammatory bowel disease Medical patient at bed rest Age 61-74 Arthroscopic surgery Major open surgery (> 45 min) Laparoscopic surgery (> 45 min) Malignancy Confined to bed (> 72 hours) Immobilizing plaster cast Central venous access Age >= 75 History of VTE Family history of VTE Factor V Leiden Prothrombin [id number] Lupus anticoagulant Anticardiolipin antibodies Elevated serum homocysteine Heparin-induced thrombocytopenia Other congenital or acquired thrombophilia Stroke (< 1 month) Elective arthroplasty Hip, pelvis, or leg fracture Acute spinal cord injury (< 1 month) Prophylaxis Regimen Total Risk Factor Score Risk Level Prophylaxis Regimen 0-1 Low Early ambulation 2 Moderate Order ONE of the following: *Sequential Compression Device (SCD) *Heparin 5000 units SQ BID 3-4 Higher Order ONE of the following medications: *Heparin 5000 units SQ TID *Enoxaparin/Lovenox 40 mg SQ daily (WT < 150 kg, CrCl > 30 mL/min) *Enoxaparin/Lovenox 30 mg SQ daily (WT < 150 kg, CrCl > 10-29 mL/min) *Enoxaparin/Lovenox 30 mg SQ BID (WT < 150 kg, CrCl > 30 mL/min) AND/OR *Sequential Compression Device (SCD) 5 or more Highest Order ONE of the following medications: *Heparin 5000 units SQ TID (Preferred with Epidurals) *Enoxaparin/Lovenox 40 mg SQ daily (WT < 150 kg, CrCl > 30 mL/min) *Enoxaparin/Lovenox 30 mg SQ daily (WT < 150 kg, CrCl > 10-29 mL/min) *Enoxaparin/Lovenox 30 mg SQ BID (WT < 150 kg, CrCl > 30 mL/min) AND *Sequential Compression Device (SCD) Assessment and Plan Assessment and Plan 1. L4-L5 disc herniation: Status post L4-L5 left hemilaminectomy and microdiscectomy. Continue pain control. Physical therapy. 2. Mild hypokalemia: Supplement potassium. 3. Leukocytosis: No other signs of infection. Possibly secondary to steroids. Recheck labs in the morning. 4. DVT prophylaxis: NKECHI Sewell. Jamil Vásquez MD October 22, 2017 14:37
[2017-10-22] MEDS ORDERED: POTASSIUM CHLORIDE 10 MEQ CONTROLLED RELEASE TAB PO ONE (15:00)
[2017-10-22] MEDS ORDERED: LACTATED RINGER'S 1000 ML INJ 1,000 ML IV ONE (15:22)
[2017-10-22] MEDS ORDERED: ONDANSETRON HCL 4 MG/2 ML VIAL IV ONE (15:22)
[2017-10-22] MEDS ORDERED: ROCURONIUM INJ 50 MG/5 ML SYRINGE IV PUSH ONE (15:22)
[2017-10-22] MEDS ORDERED: ePHEDrine/NS 25 MG/5 ML SYRINGE IV ONE (15:22)
[2017-10-22] MEDS ORDERED: NEOSTIGMINE 5 MG/5 ML SYRINGE IV PUSH ONE (15:22)
[2017-10-22] MEDS ORDERED: LIDOCAINE HCL 1% PF 5 ML SYRINGE OTHER ONE (15:22)
[2017-10-22] MEDS ORDERED: DEXAMETHASONE SOD PHOS 4 MG/ML VIAL IV ONE (15:22)
[2017-10-22] MEDS ORDERED: GLYCOPYRROLATE 1 MG/5 ML SYRINGE IV PUSH ONE (15:22)
[2017-10-22] MEDS ORDERED: PROPOFOL 200 MG/20 ML AMP IV ONE (15:22)
[2017-10-22 16:00] VITALS: BP 153/87; PULSE 85; RESP 18; TEMP 97.8; O2SAT 95
--- NOTE | 2017-10-22 17:11 | EKG ---
Date Performed: 10/21/2017 Time Performed: 17:33:03 PTAGE: 37 years EKG: Sinus rhythm WITH SHORT NC INTERVAL BORDERLINE ECG NO PREVIOUS TRACING DOCTOR: Jass Kwok Interpretating Date/Time 10/22/2017 16:27:01
[2017-10-22] MEDS: ceFAZolin 2 GM PREMIX 50 ML IV SCH (17:55)
[2017-10-22 20:00] VITALS: BP 100/58; PULSE 75; RESP 18; TEMP 98; O2SAT 98
[2017-10-22] MEDS: DOCUSATE SODIUM 100 MG CAP PO SCH (21:00)
[2017-10-22] MEDS: CHLORHEXIDINE GLUCONATE 4% SOLN 120 ML BTL TOP SCH (21:00)
[2017-10-22 23:00] VITALS: BP 102/57; PULSE 83; RESP 18; TEMP 97.6; O2SAT 98
[2017-10-22] MEDS: ACETAMINOPHEN/HYDROcodone 325 MG/10 MG TAB PO PRN (23:09)
[2017-10-23] MEDS: ceFAZolin 2 GM PREMIX 50 ML IV SCH ×2 (03:17→08:59)
[2017-10-23 05:00] VITALS: BP 99/54; PULSE 71; RESP 18; TEMP 98; O2SAT 98
[2017-10-23] MEDS: NS + KCL 20 MEQ INJ 1,000 ML IV SCH ×2 (05:39→09:06)
[2017-10-23 08:00] VITALS: BP 102/58; PULSE 71; RESP 18; TEMP 98.7; O2SAT 99
[2017-10-23 08:14] LABS: AUTOMATED NEUTROPHIL # 10.8 TH/MM3 (1.8-7.7); BASOPHIL % 0.1 % (0.0-2.0); HEMATOCRIT 33.2 % (35.0-46.0); HEMOGLOBIN 10.8 GM/DL (11.6-15.3); MEAN CELL VOLUME 81.2 FL (80.0-100.0); MEAN CORPUSCULAR HEMOGLOBIN 26.5 PG (27.0-34.0); MEAN CORPUSCULAR HGB CONC 32.6 % (32.0-36.0); MEAN PLATELET VOLUME 10.6 FL (7.0-11.0); MONO % 6.4 % (0.0-8.0); MONOCYTE # 0.8 TH/MM3 (0-0.9); NEUT % 85.5 % (16.0-70.0); PLATELET COUNT 173 TH/MM3 (150-450); RED BLOOD COUNT 4.09 MIL/MM3 (4.00-5.30); RED CELL DISTRIBUTION WIDTH 13.7 % (11.6-17.2); WHITE BLOOD COUNT 12.7 TH/MM3 (4.0-11.0)
[2017-10-23 08:41] LABS: BICARBONATE 21.2 MEQ/L (21.0-32.0); CALCIUM 8.1 MG/DL (8.5-10.1); CREATININE 0.64 MG/DL (0.50-1.00)
[2017-10-23] MEDS: SODIUM CHLORIDE 0.9% FLUSH 10 ML FLUSH IV FLUSH SCH (08:56)
[2017-10-23] MEDS: ACETAMINOPHEN/HYDROcodone 325 MG/10 MG TAB PO PRN (08:58)
[2017-10-23] MEDS: DOCUSATE SODIUM 100 MG CAP PO SCH (08:59)
[2017-10-23] MEDS ORDERED: PANTOPRAZOLE SOD 40 MG DELAYED RELEASE TAB PO SCH (09:00)
[2017-10-23 12:00] VITALS: BP 90/49; PULSE 97; RESP 18; TEMP 97.8; O2SAT 99
--- NOTE | 2017-10-23 12:05 | HHI.NSPN ---
History Chief Complaint: left foot drop Interval History 10/23/17: Pt s/p L4/L5 microdiscectomy for left foot drop. She denies any radiculopathy in LLE. Mild paresthesias left lateral aspect of foot. Pt has some slight movement in left foot/toes. Review of Systems General: Negative for: fever, chills, insomnia Respiratory: Negative for: shortness of breath, cough, sputum Cardiovascular: Negative for: chest pain Gastrointestinal: Negative for: nausea, vomitting, diarrhea, constipation Exam Results Vital Signs Date Time Temp Pulse Resp B/P (MAP) Pulse Ox O2 Delivery O2 Flow Rate FiO2 10/23/17 09:11 Room Air 10/23/17 08:00 98.7 71 18 102/58 (73) 99 10/22/17 11:18 2 Physical Examination General: Pt resting in bed in NAD. Eyes: Pupils equal. Sclera anicteric. Resp: CTA bilaterally Heart: NSR no murmurs Abd: Soft positive bs skin: Incision clean and dry. Antibiotic bandage in place. Muscle: Left foot drop. Some movement in left toes 1/5. Otherwise 5/5 strength in LEs Neuro: Pt awake and alert. Follows commands well. Speech clear and appropriate. Mild paresthesias left lateral foot to examination otherwise intact. Lab, Micro, Other Results Last Impressions Lumbar Spine X-Ray 10/22/17 0000 Signed Impressions: Service Date/Time: Sunday, October 22, 2017 10:04 - CONCLUSION: Metallic probe L4- L5 Earl Palacios MD FACR Lumbar Spine MRI 10/21/17 0000 Signed Impressions: Service Date/Time: October 12:39 - CONCLUSION: Large posterior central and left paracentral protrusion at the L4-5 level with mass effect on the thecal sac and origin of the left L5 nerve root. Alexey Stubbs MD Chest X-Ray 10/21/17 0000 Signed Impressions: Service Date/Time: October 17:42 - CONCLUSION: 1. No acute cardiopulmonary disease. Emanuel Lawson MD Laboratory Tests Test 10/23/17 06:32 White Blood Count 12.7 TH/MM3 Red Blood Count 4.09 MIL/MM3 Hemoglobin 10.8 GM/DL Hematocrit 33.2 % Mean Corpuscular Volume 81.2 FL Mean Corpuscular Hemoglobin 26.5 PG Mean Corpuscular Hemoglobin Concent 32.6 % Red Cell Distribution Width 13.7 % Platelet Count 173 TH/MM3 Mean Platelet Volume 10.6 FL Neutrophils (%) (Auto) 85.5 % Lymphocytes (%) (Auto) 8.0 % Monocytes (%) (Auto) 6.4 % Eosinophils (%) (Auto) 0.0 % Basophils (%) (Auto) 0.1 % Neutrophils # (Auto) 10.8 TH/MM3 Lymphocytes # (Auto) 1.0 TH/MM3 Monocytes # (Auto) 0.8 TH/MM3 Eosinophils # (Auto) 0.0 TH/MM3 Basophils # (Auto) 0.0 TH/MM3 CBC Comment DIFF FINAL Differential Comment Blood Urea Nitrogen 12 MG/DL Creatinine 0.64 MG/DL Random Glucose 101 MG/DL Calcium Level 8.1 MG/DL Magnesium Level 2.0 MG/DL Sodium Level 140 MEQ/L Potassium Level 4.4 MEQ/L Chloride Level 111 MEQ/L Carbon Dioxide Level 21.2 MEQ/L Anion Gap 8 MEQ/L Estimat Glomerular Filtration Rate 105 ML/MIN Medical Decision Making Impression and Plan A: 37 y/o FM s/p left L4/L5 microdiscectomy. Left foot drop. P: D/C home Follow up with Dr. Shannon. Jamal Sims October 23, 2017 12:05 pm
[2017-10-23] MEDS ORDERED: NITR100C4 PO (12:22)
[2017-10-23] MEDS ORDERED: HYDR-3583 PO (12:22)
[2017-10-23] MEDS ORDERED: DIFL150T PO (12:22)
--- NOTE | 2017-10-23 12:26 | HHI.DS ---
Discharge Summary Admission Date October 21, 2017 at 13:12 Discharge Date: October 23, 2017 Admitting Diagnosis Lumbar radiculopathy, foot drop (1) Foot drop, left ICD Code: M21.372 - Foot drop, left foot Status: Acute (2) Lumbar radiculopathy, acute ICD Code: M54.16 - Radiculopathy, lumbar region Status: Acute Procedures laminectomy with L4/5 microdiscectomy Brief History - From Admission I attempted to see the patient this morning at ~0900, but she was off the floor for surgery. She is seen following surgery. [employer] service utilized. Patient is a 37-year-old Albanian-speaking female who presented to the emergency department yesterday with complaint of lower back pain that radiated down her left leg. This has been going on for about a week. Starting yesterday she developed significant weakness in her left leg and was unable to lift her left foot. She denies any injuries to her back. Denies any recent falls. No urinary difficulties. CBC/BMP: 10/23/17 0632 10/23/17 0632 Significant Findings Laboratory Tests Test 10/21/17 11:58 10/21/17 21:32 10/22/17 07:00 10/23/17 06:32 Urine Nitrite POS (NEG) Urine Bacteria MANY /hpf (NONE) Mean Corpuscular Hemoglobin 26.8 PG (27.0-34.0) 26.9 PG (27.0-34.0) 26.5 PG (27.0-34.0) Neutrophils (%) (Auto) 93.1 % (16.0-70.0) 83.1 % (16.0-70.0) 85.5 % (16.0-70.0) Lymphocytes (%) (Auto) 6.0 % (9.0-44.0) 8.0 % (9.0-44.0) Lymphocytes # (Auto) 0.5 TH/MM3 (1.0-4.8) Random Glucose 110 MG/DL (74-106) Total Protein 8.5 GM/DL (6.4-8.2) Aspartate Amino Transf (AST/SGOT) 12 U/L (15-37) Estimat Glomerular Filtration Rate 77 ML/MIN (>89) 68 ML/MIN (>89) White Blood Count 12.1 TH/MM3 (4.0-11.0) 12.7 TH/MM3 (4.0-11.0) Neutrophils # (Auto) 10.0 TH/MM3 (1.8-7.7) 10.8 TH/MM3 (1.8-7.7) Potassium Level 3.3 MEQ/L (3.5-5.1) Hemoglobin 10.8 GM/DL (11.6-15.3) Hematocrit 33.2 % (35.0-46.0) Calcium Level 8.1 MG/DL (8.5-10.1) Chloride Level 111 MEQ/L (98-107) Hospital Course This is a 37-year-old female with a history of left sided sciatica which acutely evolved 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 Her boyfriend who is a chiropractic student recommended that she visit the emergency room. Imaging revealed a large disc herniation at L4-L5. Neurosurgery was consulted and she underwent a L4-L5 microdiscectomy with partial laminectomy. She tolerated the surgery well, she has already been up with a walker and is asking to go home today. She has been cleared for discharge by neurosurgery. Home healthcare has been arranged for wound management and she has a follow-up scheduled with neurosurgery. In the ER she had an incidental finding of urinary tract infection and she will be covered with Macro[employer] for that. Pt Condition on Discharge: Stable Discharge Disposition: Disch w/ Home Health Serv Discharge Time: <= 30 minutes Discharge Instructions DIET: Follow Instructions for: As Tolerated, No Restrictions Activities you can perform: Shower Only-No Bath Activities to Avoid: Lifting/Bending, Strenuous Activity, Bathing, Driving Jonathon Corona MD October 23, 2017 12:26
--- NOTE | 2017-10-23 12:30 | HHI.FF ---
Face to Face Verification Diagnosis: (1) Foot drop, left (2) Lumbar radiculopathy, acute Physical Therapy Order: Evaluate and Treat, Improve ambulation, Strength and gait training Home Health Nursing Order: Wound care and dressing changes Nursing assessment with vital signs I have seen patient Fernando Wilburn on 10/23/17. My clinical findings support the need for the requested home health care services because: Deconditioned w/ increased weakness High risk of falls I certify that my clinical findings support that this patient is homebound because: Post-op weakness Unsteady gait/balance Unable to use public transportation Jamal Sims October 23, 2017 12:30 pm
[2017-10-23] MEDS ORDERED: WALKER WHEELS/F1 MIS (12:49)
== END 2017-10-23 15:23 | disposition home health service (06) | DRG 519 ==
LOC: PHED 09:54 → PHEDA 13:12 → N04A 16:38 → N05B 10-22 11:55
PROVIDERS: ADMIT Family Medicine; ATTEND Family Medicine
PROC: 01NB0ZZ Release Lumbar Nerve, Open Approach (ICD-10-PCS; 2017-10-22)
PROC: 0SB20ZZ Excision of Lumbar Vertebral Disc, Open Approach (ICD-10-PCS; principal; 2017-10-22 08:43)
DX: M51.16 Intervertebral disc disorders with radiculopathy, lumbar region (principal); N39.0 Urinary tract infection, site not specified; E87.6 Hypokalemia; M48.061 Spinal stenosis, lumbar region without neurogenic claudication; B37.9 Candidiasis, unspecified; M21.372 Foot drop, left foot
CPT/HCPCS: 71046; 72020; 72148; 76000; 80048; 80053; 81001; 83735; 84703; 85025; 85610; 85730; 87077; 87086; 87186; 93005; 94150; 96372; J0131; J0690; J0696; J1030; J1100; J1580; J1885; J2250; J2270; J2360; J2405; J2710; J3010; J3480; J7120; L0627